=== PATIENT | male | born 1935 | race Caucasian/White ===

== ENCOUNTER 2016-09-27 19:46 | Emergency (ER) | payer MEDICARE ==
[~2016-09-27] VITALS: Ht 170.2 cm; Wt 81.8 kg
[2016-09-27 20:34] VITALS: BP 131/83; PULSE 73; RESP 12; O2SAT 95
[2016-09-27 21:19] LABS: BASOPHILS % (AUTO) 0.2 % (0-3); MONOCYTES % (AUTO) 9.8 % (4-12); Mean Corpuscular Volume 86.1 fL (81-100); NEUTROPHILS % (AUTO) 59.6 % (40-74); Platelet Count 181 bil/L (150-400)
[2016-09-27 21:34] LABS: INR 0.96 ratio
--- NOTE | 2016-09-27 22:01 | ED.REPORT ---
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 He reports that he was in an 11 hour car ride yesterday and today. Denies any swelling, SOB, chest pain or abdominal pain. The pain was so severe he had problems with ambulation, noting it felt like a severe cramp which has now resolved. He has no leg pain at this time but is here because his was concerned about a blood clot. He denies any hx of blood clot. He takes baby aspirin. Nursing Notes Stated Complaint: PAIN IN RT LEG Chief Complaint: General Complaint Nursing Notes Reviewed: Yes Allergies: Coded Allergies: No Known Allergies (Unverified , 09/27/16) General Time Seen by MD: 21:40 Chief Complaint Other (Right leg pain) Hx Obtained From: Patient Arrived By: Walk-in Sudden in Onset?: Yes Onset Occurred: Just prior to arrival Symptom Duration: Since onset Location: : Leg right Quality: Painful Severity: Current: Moderate Severity: Maximum: Severe Recent Healthcare: No recent doctor visit, No recent hospitalization Similar Sx Previous: No Past Medical History Past Medical History NPH with SMOKING PIPE REPAIRER shunt, 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 Physical Exam Vital Signs Vital Signs Date Time Temp Pulse Resp B/P Pulse Ox O2 Delivery O2 Flow Rate FiO2 09/27/16 20:34 36.8 73 12 131/83 95 Room Air Initial VS: Reviewed General/Constitutional: Well-developed, Well-nourished Head / Eyes: Atraumatic, Normocephalic, PERRL ENT: Mucous membranes moist, Conjunctiva normal, No scleral icterus Neck: Supple, Non-tender, Full range of motion Respiratory: Breath sounds normal, Clear to auscultation, No respiratory distress Extremities: Vascular intact, Neuro intact, No swelling, No tenderness Skin: Warm, Dry, No cyanosis Neurologic: Alert, Oriented, Nonfocal Psychiatric: Mood/affect normal, Behavior normal, Normal thought content Lower Extremity / Pelvis / MS: Full range of motion, No swelling, No erythema, No deformity, Neurologic intact, Vascular intact Both legs cool to touch. Full ROM of bilat knee without pain. No swelling, tenderness, palpable bands/cords or erythema of leg. dorsalis pedis pulses 1/4 bilaterally. Interpretation & Diagnostics Lab Results Interpretation Result Diagram: 09/27/16211309/27/162113 Test 09/27/16 21:14 White Blood Count 6.1th/mm3 (3.8-10.1) Red Blood Count 5.04mil/mm3 (4.40-5.80) Hemoglobin 15.1g/dL (13.8-17.2) Hematocrit 43.4% (41.0-50.0) Mean Corpuscular Volume 86.1fL (81-100) Mean Corpuscular Hemoglobin 30.0pg (27.0-35.0) Mean Corpuscular Hemoglobin Concent 34.8% (32.0-37.0) Red Cell Distribution Width 13.8% (12.3-15.4) Platelet Count 181bil/L (150-400) Neutrophils (%) (Auto) 59.6% (40-74) Lymphocytes (%) (Auto) 27.1% (14-46) Monocytes (%) (Auto) 9.8% (4-12) Eosinophils (%) (Auto) 3.0% (0-5) Basophils (%) (Auto) 0.2% (0-3) Prothrombin Time 10.3sec (8.1-12.5) Prothromb Time International Ratio 0.96ratio Sodium Level 139mEq/L (134-144) Potassium Level 3.5mEq/L (3.5-5.2) Chloride Level 101mEq/L (97-108) Carbon Dioxide Level 23mmol/L (18-29) Blood Urea Nitrogen 20mg/dL (8-27) Creatinine 0.93mg/dL (0.76-1.27) Estimat Glomerular Filtration Rate 83mL/min (>59) Glucose Level 114mg/dL (60-99) Calcium Level 9.3mg/dL (8.5-10.1) Total Bilirubin 0.4mg/dL (0.0-1.2) Aspartate Amino Transf (AST/SGOT) 19U/L (0-50) Alanine Aminotransferase (ALT/SGPT) 24U/L (0-44) Alkaline Phosphatase 65U/L (25-160) Total Protein 7.0g/dL (6.4-8.4) Albumin 4.0g/dL (3.4-5.0) Hold Pichardo Top Tube Received (Received) Re-Eval/Medical Decision Med Decision/Clinical Course Pt reassured that his history and his physical exam are not consistent with DVT and no US is needed, however I did offer US and pt agreed this is not necessary as his sx have resolved. Labs returned normal/reassuring. Time of Eval: 22:10 Patient Status: Condition improved Re-Evaluation/Progress Note: Discussed plan for discharge. Pt understands and agrees with plan. Counseled Regarding: Diagnosis, Lab results, Need for follow-up, When/why to return to ED Discharge & Departure Primary Impression: Right leg pain Ruled Out: DVT (deep venous thrombosis) Disposition: Home Discharge Condition All VS Reviewed: Yes Condition: Improved Additional Instructions: Thank you for trusting us with your care this evening. There is no dangerous cause for your leg pain identified on our exam. Your blood work returned normal. You have good circulation and your lower legs and there are no signs of a blood clot. Your pain appears to have resolved at this time. Please follow-up with your primary care provider next week if your pain returns. Return to the ER for new or worsening symptoms Referrals: NOPCP (PCP) Neisha Attestation Portions of this note were transcribed by Elie Ferreira. I, Dr. Servin personally performed the history, physical exam and medical decision-making; I reviewed and confirmed the accuracy of the information in the transcribed note. Signed by: Neisha Hammer, 09/27/2016. Taqueria Servin DO Sep 27, 2016 22:01 ELIE FERREIRA Sep 27, 2016 22:09
== END 2016-09-27 22:30 | disposition home or self-care (01) ==
LOC: SED 19:46
DX: M79.661 Pain in right lower leg (principal); Z95.0 Presence of cardiac pacemaker